=== PATIENT | female | born 1945 | race Caucasian/White ===

== ENCOUNTER 2025-08-06 14:11 | Emergency (ER) | payer MEDICARE, OTHER ==
[~2025-08-06] VITALS: Ht 154.9 cm; Wt 52.8 kg
--- NOTE | 2025-08-06 17:57 | Physician Documentation ---
History of Present Illness ~ Chief Complaint: Ear Pain Stated Complaint: EAR PAIN Time Seen by MD: 17:08 Primary Medical Doctor: Azam Jarrell [facility] 79-year-old female presents to the ED with a complaint of bilateral ear pain particularly on the left side. She states she also has diminished hearing. Denies any fevers but reports occasional dizziness when ambulating.. Denies any other associated symptoms including any focal deficits weakness headaches. Day of Onset: Aug 06, 2025 Medication Reconciliation Allergies: Coded Allergies: codeine (Unverified Allergy, Unknown, 11/13/16) Scheduled Amoxicillin Trihydrate* (Amoxicillin*), 1 CAP PO Q8H Carbamide Peroxide (Debrox), 5 DROP EACH EAR Q12H Past Medical History Past Medical History: No Pertinent History Past Surgical History: noncontributory Alcohol Use: Occasionally Drug Use: none Lives with: Family Lives In: Home Review of Systems All Other Systems at this time: Reviewed and Negative ROS As stated above in the HPI, otherwise all systems are reviewed and negative. Physical Exam Vital Signs: Temperature: 98.0, Source: Temporal, Heart Rate: 71, Respiratory Rate: 16, BP: 111/64, Pulse Oximetry: 100, Weight: 52.800 Oxygen Flow Rate: 0 Physical Exam General: Alert, no apparent distress. HEENT: PERRL, EOMI, no injection, moist mucous membranes. Bilateral cerumen impaction with erythema in the left external auditory canal Neck: Full range of motion. Respiratory: Lungs clear, no respiratory distress. Chest: No accessory muscle use. Cardiovascular: Regular rate and rhythm, no murmurs. Gastrointestinal: Soft, nontender, nondistended. Bowels sounds present. Extremities: Normal range of motion, no deformity. Neurologic: Oriented x4. Psychiatric: Normal mood and affect. Skin: Normal color, warm and dry. No edema, no ecchymosis. Progress Results/Orders Results/Orders Orders - COCO PATE FUEL TESTING TECHNICIAN Ear Procedure (08/06/25 ) Vital Signs 08/06/25 14:20 Temp 98.0 Pulse 71 Resp 16 B/P (MAP) 111/64 Pulse Ox 100 O2 Flow Rate 0 Medical Decision Making Additional information obtaine: old records Findings Patient had grossly impacted bilateral external auditory canals. Nursing staff indicated that they were able to remove large amount of cerumen. However I do believe she has developed an infection in the left side therefore I am going to treat her with antibiotics. Also sent her to prox to her pharmacy for ongoing ear care Ear Diff. Dx: Considerations: Include: Abrasion, Cerumen impaction, Foreign body, Otitis externa, Barotrauma, Otitis media, Perforation, Referred pain- dental, Referred pain-pharyngitis, Referred pain-sinusitis, Referred pain-TMJ syn., Tympanic Membrane Injury, Other Eye Diff. Dx: Considerations: Unlikely: Chalazoin, Conjuctivits-allergic, Conjuctivitis-bacterial, Conjuctivits-chlamydial, Conjuctivitis-viral, Corneal abrasion, Corneal laceration, Corneal ulceration, Foreign body-conjuctiva, Foreign body-corneal, Foreign body-intraocular, Foreign body-lid, Glaucoma, Globe rupture, Hordeolum, Iritis, Orbital cellulitis, Periobital cellulitis, Retinal artery occulsion, Retinal vein occlusion, Rust ring, Subconjunctival hem, Ultraviolet keratitis, Uveitis, Vitreous hemorrhage, Other Nose Diff. Dx: Considerations: Unlikely: Abrasion, Anterior nasal bleed, Avulsion, Contusion, Coagulopathy, Fracture-nasal bone, Fracture-septum, Hypertension, Laceration, Other, Posterior nasal bleed, Retained foreign body, Septal hematoma Tooth Diff. Dx: Considerations: Unlikely: Alveolar fracture, Aveolar osteitis, ANUG, Facial cellulitis, Periapical abscess, Periodontal abscess, Post- extraction bleeding, Pulpitis, Trigeminal neuralgia, Tooth-avulsion, Tooth- eruption, Tooth-fracture, Tooth-subluxation, Other Throat Diff Dx: Considerations: Unlikely: AIDS, Epiglottitis, Esophageal candidiasis, Hand foot mouth disease, Herpangina, Herpetic stomatitis, Herpes simplex, Infection mononucleosis, Immunodeficiency, Se's angina, Peritonsillar abscess, Peritonsillar cellulitis, Pharyngitis-diphtheria, Pharyngitis-strepococcal, Pharyngitis-viral, Thrush, URI, Other Departure Disposition: 01 HOME / SELF CARE / HOMELESS Impression: Primary Impression: Cerumen debris on tympanic membrane of both ears Additional Impression: Otitis media Discharge Instructions: Earwax Buildup, Adult, Otitis Media, Adult Referrals: NO PRIMARY CARE PROVIDER (PCP) Prescriptions Amoxicillin Trihydrate* (Amoxicillin*) 500 Mg Capsule 1 CAP PO Q8H for 10 Days, #30 CAP Prov: COCO PATE FUEL TESTING TECHNICIAN 08/06/25 Carbamide Peroxide (Debrox) 6.5 % Drops 5 DROP EACH EAR Q12H, #15 ML 0 Refills Prov: COCO PATE FUEL TESTING TECHNICIAN 08/06/25 Education Educated: Patient Educated regarding: diagnosis Signature Scribe Signature: r Attestation: Scribed for Coco Pate Safety Scientist by Coco Pate - NOHELIA . 08/06/25 17:57 COCO PATE NP Aug 06, 2025 17:57
[2025-08-06] MEDS ORDERED: AMOX500C2 PO (18:05)
[2025-08-06] MEDS ORDERED: CARB15DR91 EACH EAR (18:05)
[2025-08-06 18:19] VITALS: BP 141/71; PULSE 97; RESP 18; TEMP 98; O2SAT 98
== END 2025-08-06 18:28 | disposition home or self-care (01) ==
LOC: ER 14:11
DX: H61.23 Impacted cerumen, bilateral (principal); H66.93 Otitis media, unspecified, bilateral; Z88.5 Allergy status to narcotic agent; Z79.899 Other long term (current) drug therapy; Z72.89 Other problems related to lifestyle
CPT/HCPCS: 99283